=== PATIENT | male | born 1960 | race Caucasian/White ===

== ENCOUNTER 2019-10-23 20:00 | Outpatient (CLI) | payer MEDICARE, MEDICAID, SELFPAY | END 2019-10-23 20:01 | disposition home or self-care (01) | LOC: SLEEP 10-24 09:36 | PROVIDERS: Family Provider Nurse Practitioner; Visit Provider Anesthesiology Pain Medicine | DX: G47.33 Obstructive sleep apnea (adult) (pediatric) (principal) | CPT/HCPCS: 95810 ==

== ENCOUNTER 2019-11-22 20:00 | Outpatient (CLI) | payer MEDICARE, MEDICAID, SELFPAY | END 2019-11-22 20:01 | disposition home or self-care (01) | LOC: SLEEP 11-23 09:37 | PROVIDERS: Family Provider Nurse Practitioner; PCP Nurse Practitioner; Visit Provider Anesthesiology Pain Medicine | DX: G47.33 Obstructive sleep apnea (adult) (pediatric) (principal) | CPT/HCPCS: 95810; 95811 ==

== ENCOUNTER 2020-05-20 14:56 | Outpatient (CLI) | payer MEDICARE, MEDICAID, SELFPAY ==
--- NOTE | 2020-05-20 15:08 | CT_ITS ---
WS: [id number] CT LUMBAR SPINE, noncontrast. HISTORY: POSTLAMINECTOMY TECHNIQUE: Contiguous 2.5 mm axial imaging are performed. Sagittal and coronal reformats are submitte d and reviewed. All CT scans at [facility] use at least one of these dose optimization te chniques: automated exposure control; mA and/or kV adjustment per patient size (includes targeted exa ms where dose is matched to clinical indication); or iterative reconstruction. IV contrast: None DLP: 2040.61 mGycm COMPARISON: 03/15/2013 Prior posterior lumbar fusion from L4 through S1. Hardware is intact with no fracture. L4 retrolisthe sis by 3 mm. L2 and L3 retrolisthesis by 3 mm. Advanced degenerative changes in the disc and facet jer ints. No fracture. L1-2: Mild disc bulging without stenosis. L2-3: Mild asymmetric disc bulging with encroachment upon the thecal sac and LEFT foramen. Mild centr al and LEFT foraminal stenosis. L3-4: Diffuse disc bulging and vertebral body osteophytes. There is marked facet joint arthritis. Mod erate central, subarticular recess and foraminal stenosis. L4-5: Large posterior laminectomy defect. No remaining significant central stenosis. Mild narrowing o f the RIGHT foramen. L5-S1: Large posterior laminectomy defects. Osteophytes without significant encroachment upon the ner ve roots. Paravertebral soft tissues are normal. Mild atherosclerosis aorta. CT/CT lumbar spine wo con* [id number] IMPRESSION: 1. Prior posterior lumbar fusion from L4 to S1 with large posterior laminectom y defects at L4 and L5. 2. Advanced degenerative disc disease and osteophytosis throughout the lumbar spine with moderate progression since 2012. 3. Moderate central, subarticular recess and foraminal stenosis at L3-4 is mul tifactorial. 4. Mild central and LEFT foraminal stenosis at L2-3.
== END 2020-05-20 14:57 | disposition home or self-care (01) ==
LOC: RADWPI 15:03
PROVIDERS: Family Provider Nurse Practitioner; PCP Nurse Practitioner; Visit Provider Anesthesiology Pain Medicine
DX: M96.1 Postlaminectomy syndrome, not elsewhere classified (principal); M43.27 Fusion of spine, lumbosacral region; M51.36 Other intervertebral disc degeneration, lumbar region; M25.78 Osteophyte, vertebrae; M48.061 Spinal stenosis, lumbar region without neurogenic claudication
CPT/HCPCS: 72131

== ENCOUNTER → 2021-05-14 09:17 | Outpatient (BNVA) | payer MEDICARE, MEDICAID, SELFPAY | PROVIDERS: Family Provider Nurse Practitioner; PCP Nurse Practitioner Family; Referring Provider Nurse Practitioner Family; Visit Provider Anesthesiology | DX: M48.07 Spinal stenosis, lumbosacral region (principal); M25.561 Pain in right knee; M25.562 Pain in left knee; M96.1 Postlaminectomy syndrome, not elsewhere classified; E66.01 Morbid (severe) obesity due to excess calories; F17.220 Nicotine dependence, chewing tobacco, uncomplicated; Z79.891 Long term (current) use of opiate analgesic; Z71.6 Tobacco abuse counseling | CPT/HCPCS: 99204 ==

== ENCOUNTER → 2021-06-02 09:43 | Outpatient (BNVA) | payer MEDICARE, MEDICAID, SELFPAY | PROVIDERS: Family Provider Nurse Practitioner; PCP Nurse Practitioner Family; Visit Provider Anesthesiology | DX: G89.29 Other chronic pain (principal); M48.07 Spinal stenosis, lumbosacral region; M96.1 Postlaminectomy syndrome, not elsewhere classified; F17.220 Nicotine dependence, chewing tobacco, uncomplicated; Z79.891 Long term (current) use of opiate analgesic | CPT/HCPCS: 99213 ==

== ENCOUNTER → 2021-08-11 10:38 | Outpatient (BNVA) | payer MEDICARE, MEDICAID, SELFPAY | PROVIDERS: Family Provider Nurse Practitioner; PCP Nurse Practitioner Family; Visit Provider Anesthesiology | DX: G89.29 Other chronic pain (principal); M96.1 Postlaminectomy syndrome, not elsewhere classified; M48.07 Spinal stenosis, lumbosacral region; M79.606 Pain in leg, unspecified; F17.220 Nicotine dependence, chewing tobacco, uncomplicated; Z79.891 Long term (current) use of opiate analgesic; Z71.6 Tobacco abuse counseling | CPT/HCPCS: 99214 ==

== ENCOUNTER → 2021-10-30 09:41 | Outpatient (BNVA) | payer MEDICARE, MEDICAID, SELFPAY | PROVIDERS: Family Provider Nurse Practitioner; PCP Nurse Practitioner Family; Visit Provider Anesthesiology | DX: G89.29 Other chronic pain (principal); M48.07 Spinal stenosis, lumbosacral region; M96.1 Postlaminectomy syndrome, not elsewhere classified; F17.220 Nicotine dependence, chewing tobacco, uncomplicated; Z79.891 Long term (current) use of opiate analgesic | CPT/HCPCS: 99213 ==

== ENCOUNTER 2024-02-22 12:37 | Outpatient (CLI) | payer MEDICARE, MEDICAID, SELFPAY ==
--- NOTE | 2024-02-22 12:46 | CT_ITS ---
WS: [id number] CT LUMBAR SPINE TECHNIQUE: Noncontrast CT of the lumbar spine with coronal and sagittal reformatted images. CLINICAL INFORMATION: VERTEBROGENIC COMPARISON: None. DLP: 1316.[address] scans at [facility] use at least one of these dose optimization techniques: automated e xposure control; mA and/or kV adjustment per patient size (includes targeted exams where dose is matc hed to clinical indication); or iterative reconstruction. FINDINGS: Lumbar curve. No acute compression. Multilevel disc space narrowing in the lower thoracic and upper l umbar spine worse at L1-2, L2-3, and L3-4 with disc bulging and vacuum disc phenomenon. Laminectomy d efects L4-5 with pedicle screw fixation and interbody fusion grafts. Dorsal interconnecting rods appe ar intact. Dorsal lateral bone graft material. Tiny nondisplaced fracture in the RIGHT posterior connecting nikkie at the level of the L4 fastener with out displacement. This may be new since 2019 but difficult to evaluate on the prior study. Disc narro wing at L3-4 has significantly progressed with slight retrolisthesis. L1-L2: Disc desiccation. Spinal canal and foramen are patent. L2-L3: Disc desiccation with mild disc bulging. Mild central canal stenosis with narrowing of the sub articular recess bilaterally. Foramen are patent. Moderate facet arthropathy. L3-L4: Slight retrolisthesis with progressed disc desiccation. Moderate central canal stenosis with i mpingement on the subarticular recess bilaterally LEFT greater than RIGHT. Advanced facet arthropathy . Central canal stenosis appears progressed. Moderate bilateral foraminal narrowing. L4-L5: Laminectomy defects. Pedicle screw fixation. Mild RIGHT bony foraminal narrowing. LEFT foramen and spinal canal are patent. L5-S1: Pedicle screw fixation. Spinal canal and foramen are patent. Laminectomy defects. Visualized pelvic bony structures: Normal. Paravertebral soft tissues: Normal. CT/CT lumbar spine wo con* [id number] IMPRESSION: 1. Nondisplaced fracture of the RIGHT dorsal interconnecting nikkie at the level of the L5 fastener. This may be new compared to prior examination but difficult to evaluate due to artifact. 2. Hardware otherwise appears intact. 3. Solid-appearing interbody fusion L4-L5 and L5-S1. 4. Decompressive laminectomies L4-L5 and L5-S1. 5. Progressed disc desiccation L3-4 with moderate central canal stenosis. This appears progressed compared to previous with impingement of the subarticular r ecess bilaterally. 6. Mild central canal stenosis L2-3 appears similar. 7. Multilevel foraminal narrowing described above.
--- NOTE | 2024-02-22 12:46 | XRR_ITS ---
PROCEDURE INFORMATION: Exam: XR Lumbosacral Spine Exam date and time: 02/22/2024 12:50 PM Age: 63 years old Clinical indication: Low back pain; Prior surgery; Surgery date: 6+ months; Surgery type: Discectomy, l-spine fusion; Additional info: Vertebrogenic TECHNIQUE: Imaging protocol: Radiologic exam of the lumbosacral spine. Views: 2 or 3 views. COMPARISON: CT lumbar spine wo con* [id number] 05/20/2020 3:12 PM FINDINGS: Bones/joints: Anterior and posterior fusion L4 through S1. Intact hardware. Mild retrolisthesis of L1 on L2 which increases slightly with extension.. No acute fracture. Normal alignment. Soft tissues: Unremarkable. XR/XR lumbar spine f/e only [id number] IMPRESSION: Postoperative and degenerative changes.
== END 2024-02-22 12:38 | disposition home or self-care (01) ==
PROVIDERS: PCP Nurse Practitioner Family; Visit Provider Nurse Practitioner
DX: S32.050A Wedge compression fracture of fifth lumbar vertebra, initial encounter for closed fracture (principal); Z98.1 Arthrodesis status; M51.36 Other intervertebral disc degeneration, lumbar region; M54.16 Radiculopathy, lumbar region; M48.061 Spinal stenosis, lumbar region without neurogenic claudication; M47.896 Other spondylosis, lumbar region
CPT/HCPCS: 72120; 72131

== ENCOUNTER → 2024-04-05 10:24 | Outpatient (BNVA) | payer MEDICARE, MEDICAID, SELFPAY | PROVIDERS: PCP Nurse Practitioner Family; Referring Provider Anesthesiology Pain Medicine; Visit Provider Orthopaedic Surgery | DX: G89.29 Other chronic pain (principal); M54.50 Low back pain, unspecified | CPT/HCPCS: 72110; 99204 ==

== ENCOUNTER 2024-04-09 06:00 | Outpatient (RCR) | payer MEDICARE, MEDICAID, SELFPAY | END 2024-05-09 23:59 | disposition home or self-care (01) | LOC: MPT 06:00 | PROVIDERS: Visit Provider Orthopaedic Surgery | DX: M54.9 Dorsalgia, unspecified (principal); G89.29 Other chronic pain | CPT/HCPCS: 97110; 97140; 97162; G0283 ==

== ENCOUNTER 2024-05-10 06:00 | Outpatient (RCR) | payer MEDICARE, MEDICAID, SELFPAY | END 2024-06-07 15:46 | disposition home or self-care (01) | LOC: MPT 06:00 | PROVIDERS: Visit Provider Orthopaedic Surgery | DX: M54.50 Low back pain, unspecified (principal); G89.29 Other chronic pain | CPT/HCPCS: 97110; G0283 ==

== ENCOUNTER → 2024-05-31 07:39 | Outpatient (BNVA) | payer MEDICARE, MEDICAID, SELFPAY | PROVIDERS: Visit Provider Orthopaedic Surgery | DX: Z09 Encounter for follow-up examination after completed treatment for conditions other than malignant neoplasm (principal) | CPT/HCPCS: 99214 ==

== ENCOUNTER 2024-06-15 09:35 | Outpatient (CLI) | payer MEDICARE, MEDICAID, SELFPAY ==
--- NOTE | 2024-06-15 10:00 | CT_ITS ---
WS: [id number] CT LUMBAR SPINE TECHNIQUE: Noncontrast CT of the lumbar spine with coronal and sagittal reformatted images. CLINICAL INFORMATION: Back Pain COMPARISON: CT 02/22/2024 DLP: 1433.[address] scans at [facility] use at least one of these dose optimization techniques: automated e xposure control; mA and/or kV adjustment per patient size (includes targeted exams where dose is matc hed to clinical indication); or iterative reconstruction. FINDINGS: Lumbar curve convex RIGHT. Slight retrolisthesis L2 on L3 and L3 on L4. Anterior hypertrophic changes in the mid lumbar spine. . Disc bulging worse at L2-L3 and L3-L4 with small disc osteophyte protrusi ons. Solid-appearing interbody fusion grafts at L4-L5 and L5-S1 with evidence of bony bridging beyond the confines of the graft. Laminectomy defects L4-5 with pedicle screw fixation and interbody fusion grafts. Dorsal lateral bon e graft material. Tiny nondisplaced fracture in the RIGHT posterior connecting nikkie at the level of th e L4 fastener without displacement is unchanged in appearance. T12-L1: Mild disc osteophyte complex. Spinal canal and foramen are patent. L1-L2: Mild disc bulge with vacuum disc phenomenon. Spinal canal and foramen are patent. Mild facet a rthropathy. L2-L3: Slight retrolisthesis. Mild central canal stenosis with narrowing of the subarticular recess b ilaterally. Moderate facet arthropathy. Foramen are patent. L3-L4: Mild disc bulging with central disc osteophyte protrusion. Slight retrolisthesis. Moderate adam tral canal stenosis. Impingement of the subarticular recess bilaterally. Advanced facet arthropathy. Moderate bilateral foraminal narrowing. L4-L5: Laminectomy defects. Mild RIGHT and no significant LEFT foraminal narrowing. L5-S1: Mild RIGHT and no significant LEFT foraminal narrowing. Laminectomy defects. Visualized pelvic bony structures: Normal. Paravertebral soft tissues: Normal. Degenerative arthritis sacroiliac joints. CT/CT lumbar spine wo con* [id number] IMPRESSION: 1. Stable nondisplaced fracture RIGHT dorsal interconnecting nikkie at the level of the L5 fastener. This is best seen on the coronal imaging. 2. No evidence of screw loosening. 3. Solid-appearing interbody fusion L4-L5 and L5-S1. 4. Decompressive laminectomies L4-L5 and L5-S1. 5. Slight retrolisthesis L3 on L4 with moderate central canal stenosis. Imping ement of the subarticular recess bilaterally. 6. Stable mild central canal stenosis L2-3. 7. Moderate bilateral L3-4 foraminal narrowing.
--- NOTE | 2024-06-15 10:00 | IR_ITS ---
WS: [id number] MYELOGRAM LUMBAR SPINE Fluoroscopic guided lumbar myelogram CLINICAL INFORMATION: Back pain TECHNIQUE: The procedure, including risks, benefits, and complications, were discussed with the patie nt who agreed to proceed. A timeout was performed to confirm correct patient, procedure, and site. Using sterile technique, the patient was prepped and draped in the usual sterile fashion. After admin istration of local anesthesia using 1% preservative-free lidocaine and using fluoroscopic guidance, a 5 inch 22-gauge spinal needle was advanced into the subarachnoid space at the LEFT L4-5 level. Subse quently 12 cc of Omnipaque 240 was administered into the thecal sac. The needle was removed and hemos tasis was achieved. Spot fluoroscopic images were obtained. FLUOROSCOPIC TIME: 2min [id number] # of spot films: 5 Spot fluoroscopic images demonstrate moderate lumbar curve. Pedicle screw fixation L4-S1 with interco nnecting rods. Hardware appears grossly intact. Slight retrolisthesis L3 on L4. Vacuum disc phenomeno n L2-L3 and L3-L4. Interbody fusion graft L4-L5 and L5-S1. Please see CT myelogram report for anatomic detail. IR/IR myelogram sp lumbar [id number] IMPRESSION: 1. Uncomplicated lumbar myelogram. 2. CT to follow.
[2024-06-15] MEDS: iohexol 240 mg/mL 50 mL Btl 20 ML INTRATHECA (12:15)
== END 2024-06-15 09:36 | disposition home or self-care (01) ==
LOC: RAD 09:36
PROVIDERS: Visit Provider Orthopaedic Surgery
DX: S32.050A Wedge compression fracture of fifth lumbar vertebra, initial encounter for closed fracture (principal); M96.1 Postlaminectomy syndrome, not elsewhere classified; M51.36 Other intervertebral disc degeneration, lumbar region; M25.78 Osteophyte, vertebrae; M51.86 Other intervertebral disc disorders, lumbar region; M48.061 Spinal stenosis, lumbar region without neurogenic claudication; M54.16 Radiculopathy, lumbar region; M47.896 Other spondylosis, lumbar region; M99.63 Osseous and subluxation stenosis of intervertebral foramina of lumbar region; X58.XXXA Exposure to other specified factors, initial encounter
CPT/HCPCS: 62304; 72131; Q9966